=== PATIENT | female | born 1995 | race Caucasian/White ===

== ENCOUNTER 2022-11-26 01:12 | Inpatient (IN) | payer OTHER ==
[~2022-11-26] VITALS: Ht 170.2 cm; Wt 75.0 kg
[2022-11-26 01:45] LABS: BASOPHILS ABSOLUTE AUTO 0.07 K/mm3 (0.00-0.23); BASOPHILS PERCENT AUTO 1 % (0-2); EOSINOPHILS ABSOLUTE AUTO 0.03 K/mm3 (0.00-0.68); EOSINOPHILS PERCENT AUTO 0 % (0-6); Hematocrit 36.6 % (33.0-51.0); IMMATURE GRAN PERCENT AUTO 1 % (0-1); LYMPHOCYTES ABSOLUTE AUTO 0.94 K/mm3 (0.84-5.20); LYMPHOCYTES PERCENT AUTO 10 % (21-46); MONOCYTES ABSOLUTE AUTO 0.63 K/mm3 (0.16-1.47); MONOCYTES PERCENT AUTO 7 % (4-13); Mean Corpuscular HGB 34.5 pg (26.0-34.0); Mean Corpuscular HGB Conc 35.5 g/dL (31.5-36.5); Mean Corpuscular Volume 97 fL (80-100); Mean Platelet Volume 10.6 fL (9.1-12.4); NEUTROPHILS ABSOLUTE AUTO 7.78 K/mm3 (1.96-9.15); NEUTROPHILS PERCENT AUTO 82 % (41-73); Platelet Count 173 K/mm3 (150-400); RDW Coefficient Variation 15.2 % (11.7-14.2); RDW Standard Deviation 53.5 fL (35.1-46.3); Red Blood Cell Count 3.77 M/mm3 (3.80-5.20); White Blood Cell Count 9.55 K/mm3 (4.00-11.30)
[2022-11-26 01:48] LABS: Alanine Aminotransfer (ALT/SGP 46 U/L (12-78); Albumin, Blood 3.5 g/dL (3.4-5.0); Albumin/Globulin Ratio 0.9 (0.8-1.8); Alk Phos 71 U/L (50-136); Anion Gap 6 mmol/L (6-16); Aspartate Aminotrans (AST/SGOT 169 U/L (12-37); Blood Urea Nitrogen 3 mg/dL (8-24); CO2, Blood 22 mmol/L (21-32); Calcium, Blood 9.2 mg/dL (8.5-10.1); Chloride, Blood 106 mmol/L (98-108); Globulin, Blood 3.9 g/dL (2.2-4.0); Glomerular Filtration Rate 128 (60-); Glucose, Blood 106 mg/dL (70-99); Potassium, Blood 3.5 mmol/L (3.5-5.5); Sodium, Blood 134 mmol/L (136-145); Total Protein, Blood 7.4 g/dL (6.4-8.2)
[2022-11-26 02:57] LABS: Magnesium, Blood 2.3 mg/dL (1.6-2.4)
[2022-11-26 03:11] LABS: Ethanol (Alcohol), Blood, Med <3 mg/dL
[2022-11-26 03:15] LABS: Source, Urine Clean Catch
[2022-11-26 03:18] LABS: Bilirubin, Urine Neg (Neg); Blood, Urine Neg (Neg); Glucose Qualitative, Urine Neg (Neg); Ketones, Urine 1+ (Neg); Leukocyte Esterase, Urine 1+ (Neg); Nitrite, Urine Neg (Neg); Protein, Urine 1+ (Neg); Urobilinogen, Urine NORM (Normal)
[2022-11-26 03:29] LABS: Appearance, Urine Hazy (Clear); Color, Urine Yellow (P-Yellow)
[2022-11-26 03:31] LABS: Amorphous Mod (0-Heavy); Bacteria Few /hpf; Mucus Mod (0-Heavy); Red Blood Cells, Urine Not Seen /hpf (0-2); Squamous Epithelial Cells Few /hpf (Few); White Blood Cells, Urine 0-2 /hpf (0-5)
[2022-11-26 03:45] LABS: U Amphetamine Screen Not Detected; U Barbituate Screen Not Detected; U Benzodiazapine Screen DETECTED; U Buprenorphine Screen Not Detected; U Cannabinoids Screen Not Detected; U Cocaine Screen Not Detected; U Methadone Screen Not Detected; U Methamphetamine Screen Not Detected; U Opiates Screen Not Detected; U Oxycodone Screen Not Detected; U Phencyclidine Screen Not Detected; U Propoxyphene Screen Not Detected
[2022-11-26 08:09] VITALS: BP 132/81
[2022-11-26 09:13] LABS: Magnesium, Blood 2.2 mg/dL (1.6-2.4); Phosphorus, Blood 2.8 mg/dL (2.5-4.9)
[2022-11-26 17:25] VITALS: BP 125/89
--- NOTE | 2022-11-26 17:35 | NUR ---
SHIFT SUMMARY PT AxOx4. PLEASANT AND COOPERATIVE WITH CARE. PT ARRIVED TO TO MEDICAL FLOOR FOR ADMISSION AT APPROX 0800 TODAY. PT REPORTED FIRST TIME SEIZURE ACTIVITY LAST NIGHT, WHICH RESULTED IN A FALL AND HITTING HER FACE. PT IS WITHDRAWING FROM ETOH. LAST DRINK WAS 11/25/22 AT 2000. PT STATES SHE NORMALLY DRINKS 9-10 BEERS EVERY NIGHT. PT IS INTERESTED IN QUITTING ALCOHOL USE. PT REPORTS FEELING ANXIOUS THIS SHIFT. MEDICATED PER EMAR. PT HAD CT OF HEAD THIS SHIFT. LAST CIWA SCORE= 7. PT CURRENTLY RESTING IN BED WITH CALL LIGHT IN REACH. DENIES ANY NEEDS AT THIS TIME.
[2022-11-26 20:17] VITALS: BP 124/91
[2022-11-27 04:11] VITALS: BP 123/92
[2022-11-27 05:25] LABS: Albumin, Blood 2.9 g/dL (3.4-5.0); Albumin/Globulin Ratio 0.8 (0.8-1.8); Bilirubin, Total 0.7 mg/dL (0.1-1.0); Bun/Creatinine Ratio 8.9 (12.0-20.0); Calcium, Blood 8.9 mg/dL (8.5-10.1); Creatinine, Blood 0.67 mg/dL (0.40-1.00); Globulin, Blood 3.6 g/dL (2.2-4.0); Magnesium, Blood 2.3 mg/dL (1.6-2.4); Phosphorus, Blood 4.6 mg/dL (2.5-4.9); Potassium, Blood 3.9 mmol/L (3.5-5.5); Total Protein, Blood 6.5 g/dL (6.4-8.2)
[2022-11-27 05:48] LABS: BASOPHILS ABSOLUTE AUTO 0.05 K/mm3 (0.00-0.23); BASOPHILS PERCENT AUTO 1 % (0-2); EOSINOPHILS ABSOLUTE AUTO 0.14 K/mm3 (0.00-0.68); EOSINOPHILS PERCENT AUTO 3 % (0-6); Hematocrit 35.2 % (33.0-51.0); IMMATURE GRAN ABSOLUTE AUTO 0.03 K/mm3 (0.00-0.10); IMMATURE GRAN PERCENT AUTO 1 % (0-1); LYMPHOCYTES ABSOLUTE AUTO 1.15 K/mm3 (0.84-5.20); LYMPHOCYTES PERCENT AUTO 24 % (21-46); MONOCYTES ABSOLUTE AUTO 0.35 K/mm3 (0.16-1.47); MONOCYTES PERCENT AUTO 7 % (4-13); Mean Corpuscular HGB 34.6 pg (26.0-34.0); Mean Corpuscular HGB Conc 34.1 g/dL (31.5-36.5); Mean Corpuscular Volume 101 fL (80-100); Mean Platelet Volume 10.4 fL (9.1-12.4); NEUTROPHILS ABSOLUTE AUTO 3.03 K/mm3 (1.96-9.15); NEUTROPHILS PERCENT AUTO 64 % (41-73); Platelet Count 153 K/mm3 (150-400); RDW Coefficient Variation 15.4 % (11.7-14.2); RDW Standard Deviation 55.7 fL (35.1-46.3); Red Blood Cell Count 3.47 M/mm3 (3.80-5.20); White Blood Cell Count 4.75 K/mm3 (4.00-11.30)
--- NOTE | 2022-11-27 06:19 | NUR ---
PT REPORTS ANXIETY 7/10, REQUESTING ATIVAN. EXPLAINED THAT ATIVAN IS FOR CIWA SCORE OF 15-19, WILL GIVE NEEDED. ATARAX SOMEWHAT EFFECTIVE FOR ANXIETY. HIGH DIASTOLIC BP, OTHERWISE VSS. UP AD TWAN, PLEASANT, STABLE, NO SEIZURE ACTIVITY NOTED DURING SHIFT.
[2022-11-27 07:36] VITALS: BP 116/80
[2022-11-27 15:40] VITALS: BP 121/88
--- NOTE | 2022-11-27 18:31 | NUR ---
SHIFT SUMMARY- PT IS A/O, PLESANT AND COOPERATIVE. SHE HAS BEEN EATING AND DRINKING WELL. SHE EXPRESSED SOME CONCERNS OF ANXIETY THIS SHIFT AND WAS TREATED PER MAR. DISCUSSED THESE CONCERNS WITH DR. GURROLA INCREASED ANXIETY MEDICATIONS. PLANNING ON DISCHARGE TOMORROW.
[2022-11-27 19:34] VITALS: BP 124/99
[2022-11-28 05:14] VITALS: BP 120/80
[2022-11-28 05:58] LABS: Bun/Creatinine Ratio 14.9 (12.0-20.0); Calcium, Blood 9.2 mg/dL (8.5-10.1); Creatinine, Blood 0.6 mg/dL (0.40-1.00); Potassium, Blood 3.7 mmol/L (3.5-5.5)
--- NOTE | 2022-11-28 06:22 | NUR ---
ATARAX INCREASED TO 50 MG LAST NIGHT, ADMINISTERED AROUND 1999 LAST NIGHT, PATIENT HAS NOT REQUESTED MORE ANXIETY MEDS THIS SHIFT. OTHERWISE NO CHANGES, PT AOX4, INDEPENDENT, VSS.
[2022-11-28 07:58] VITALS: BP 117/93
[2022-11-28] MEDS ORDERED: HYDHCL25 PO (11:34)
[2022-11-28] MEDS ORDERED: SERT25 PO (11:34)
[2022-11-28] MEDS ORDERED: B-1100 M1 PO (11:35)
[2022-11-28] MEDS ORDERED: FOLI1 PO (11:35)
--- NOTE | 2022-11-28 13:05 | NUR ---
DISCHARGE SUMMARY ALERT AND ORIENTED, HIGH ANXIETY. INDEPENDENT IN ROOM. TOLERATING REGULAR DIET AND LIQUIDS. VOIDING WELL. MEDICATED FOR ANXIETY PER EMAR. CIWAS STABLE. SEEN BY HOSP AND DISCHARGE ORDERS PLACED. PLAN IS FOR PATIENT TO FOLLOW UP WITH [facility] PCP, GET RXS FROM [facility]. DISCHARGE EDUCATION GIVEN ON NEW RXS, FOLLOW UP WITH PCP. IV DC'D WNL. PATIENT LEFT UNIT AT 1300 VIA WHEELCHAIR WITH FRIEND FOR HOME.
== END 2022-11-28 12:58 | disposition home or self-care (01) | DRG 897 ==
LOC: ER 01:12 → MEDS 06:00 → ENPENDDIS 11-28 11:02 → MEDS 11-28 12:58
PROVIDERS: Family Medicine; Student in an Organized Health Care Education/Training Program; ADMIT Student in an Organized Health Care Education/Training Program
DX: F10.239 Alcohol dependence with withdrawal, unspecified (principal); E87.1 Hypo-osmolality and hyponatremia; R56.9 Unspecified convulsions; S09.90XA Unspecified injury of head, initial encounter; F41.0 Panic disorder [episodic paroxysmal anxiety]; F43.10 Post-traumatic stress disorder, unspecified; S00.81XA Abrasion of other part of head, initial encounter; W22.8XXA Striking against or struck by other objects, initial encounter
CPT/HCPCS: 36415; 70450; 80048; 80053; 81001; 81025; 83735; 84100; 85025; 93005; 93010; 94762; 96361; 96365; 96366; 96372; 96374; 96375; 96376; 99285-25; A9270; G0378; G0480; J1650; J2060; J3411; J7030; J7050

== ENCOUNTER 2023-09-13 23:23 | Emergency (ER) | payer OTHER ==
[~2023-09-13] VITALS: Ht 170.2 cm; Wt 68.0 kg
[~2023-09-13 23:23] MED LIST: B-1100 M1 PO; FOLI1 PO; HYDHCL25 PO; SERT25 PO
[2023-09-13 23:29] VITALS: BP 150/98
[2023-09-13 23:54] LABS: BASOPHILS ABSOLUTE AUTO 0.08 K/mm3 (0.00-0.23); BASOPHILS PERCENT AUTO 1 % (0-2); EOSINOPHILS PERCENT AUTO 1 % (0-6); Hematocrit 39.5 % (33.0-51.0); Hemoglobin 13.6 g/dL (11.5-16.0); IMMATURE GRAN ABSOLUTE AUTO 0.04 K/mm3 (0.00-0.10); IMMATURE GRAN PERCENT AUTO 0 % (0-1); LYMPHOCYTES ABSOLUTE AUTO 1.39 K/mm3 (0.84-5.20); LYMPHOCYTES PERCENT AUTO 15 % (21-46); MONOCYTES PERCENT AUTO 12 % (4-13); Mean Corpuscular HGB Conc 34.4 g/dL (31.5-36.5); Mean Corpuscular Volume 87 fL (80-100); NEUTROPHILS ABSOLUTE AUTO 6.71 K/mm3 (1.96-9.15); NEUTROPHILS PERCENT AUTO 71 % (41-73); Platelet Count 275 K/mm3 (150-400); RDW Coefficient Variation 17.9 % (11.7-14.2); RDW Standard Deviation 54.1 fL (35.1-46.3); Red Blood Cell Count 4.54 M/mm3 (3.80-5.20); White Blood Cell Count 9.42 K/mm3 (4.00-11.30)
[2023-09-14 00:12] LABS: Albumin/Globulin Ratio 0.9 (0.8-1.8); Bilirubin, Total 0.8 mg/dL (0.1-1.0); Bun/Creatinine Ratio 13.3 (12.0-20.0); Calcium, Blood 9.1 mg/dL (8.5-10.1); Creatinine, Blood 0.68 mg/dL (0.40-1.00); Globulin, Blood 4.3 g/dL (2.2-4.0); Potassium, Blood 3.3 mmol/L (3.5-5.5); Total Protein, Blood 8.3 g/dL (6.4-8.2)
[2023-09-14 00:29] LABS: Source, Urine Clean Catch
[2023-09-14 00:33] LABS: Bilirubin, Urine Neg (Neg); Blood, Urine 5+ (Neg); Glucose Qualitative, Urine Neg (Neg); Ketones, Urine 1+ (Neg); Leukocyte Esterase, Urine 1+ (Neg); Nitrite, Urine Neg (Neg); Protein, Urine Neg (Neg); Urobilinogen, Urine NORM (Normal)
[2023-09-14 00:42] LABS: Appearance, Urine Clear (Clear); Color, Urine Yellow (P-Yellow)
[2023-09-14 00:43] LABS: Bacteria Few /hpf; Red Blood Cells, Urine 0-2 /hpf (0-2); Squamous Epithelial Cells Few /hpf (Few); White Blood Cells, Urine 0-2 /hpf (0-5)
== END 2023-09-14 00:23 | disposition home or self-care (01) ==
LOC: ER 23:23
PROVIDERS: Emergency Medicine
DX: F32.A Depression, unspecified (principal); F15.90 Other stimulant use, unspecified, uncomplicated; F43.10 Post-traumatic stress disorder, unspecified
CPT/HCPCS: 80053; 81001; 85025; 93005; 93010; 99283-25

== ENCOUNTER 2024-02-18 23:33 | Emergency (ER) | payer OTHER ==
[~2024-02-18] VITALS: Ht 167.6 cm; Wt 72.6 kg
[2024-02-18 23:39] VITALS: BP 126/80
[2024-02-20] MEDS ORDERED: NYAMYC15 G1 TOP (11:59)
== END 2024-02-19 00:06 | disposition home or self-care (01) ==
LOC: ER 23:33
DX: R04.2 Hemoptysis (principal); F15.10 Other stimulant abuse, uncomplicated; F41.9 Anxiety disorder, unspecified; F43.10 Post-traumatic stress disorder, unspecified; Z72.820 Sleep deprivation
CPT/HCPCS: 99283

== ENCOUNTER 2024-02-19 00:45 | Emergency (ER) | payer OTHER ==
[~2024-02-19] VITALS: Ht 167.6 cm; Wt 72.6 kg
[2024-02-19] MEDS ORDERED: Ondansetron HCl 2 MG / ML 2ML Vial IV ONE (00:50)
[2024-02-19] MEDS ORDERED: NS 1,000 ML IV SCH (00:50)
[2024-02-20] MEDS ORDERED: NYAMYC15 G1 TOP (11:59)
== END 2024-02-19 00:52 | disposition home or self-care (01) ==
LOC: ER 00:45
DX: F15.10 Other stimulant abuse, uncomplicated (principal); R11.10 Vomiting, unspecified; F43.10 Post-traumatic stress disorder, unspecified
CPT/HCPCS: 99283

== ENCOUNTER 2024-02-20 10:36 | Emergency (ER) | payer OTHER ==
[~2024-02-20] VITALS: Ht 167.6 cm; Wt 72.6 kg
[2024-02-20 11:08] VITALS: BP 159/100
[2024-02-20] MEDS ORDERED: NYAMYC15 G1 TOP (11:59)
== END 2024-02-20 12:11 | disposition home or self-care (01) ==
LOC: ER 10:36
DX: L30.4 Erythema intertrigo (principal); F15.10 Other stimulant abuse, uncomplicated; F43.10 Post-traumatic stress disorder, unspecified; Z79.899 Other long term (current) drug therapy
CPT/HCPCS: 99282